=== PATIENT | female | born 1980 | race Caucasian/White ===

== ENCOUNTER 2023-04-22 18:03 | Emergency (ER) | payer MEDICAID, SELFPAY ==
[2023-04-22 18:04] VITALS: BP 139/96; PULSE 107; RESP 16; TEMP 37.2; O2SAT 99; BMI 23.7
[2023-04-22] MEDS: Morphine 4 MG/ML Syringe IV (20:01)
[2023-04-22] MEDS: Ondansetron 4 MG/2 ML Vial IV (20:01)
--- NOTE | 2023-04-22 20:14 | RAD_ITS ---
EXAM: XR CHEST, 2 VIEWS CLINICAL INDICATION: Pain TECHNIQUE: Frontal and lateral views of the chest. COMPARISON: No relevant prior studies available. FINDINGS: LUNGS AND PLEURAL SPACES: Unremarkable. No consolidation or edema. No pneumothorax. No effusion. HEART: Unremarkable. Cardiac silhouette not enlarged. MEDIASTINUM: Central airways and mediastinal contour are unremarkable. BONES/JOINTS: Unremarkable. SOFT TISSUES: Unremarkable. RAD/Chest PA and Lateral IMPRESSION: No radiographic evidence of acute cardiopulmonary disease. Electronically Signed: Quentin Cole MD at 20:40 EDT ,
[2023-04-22 20:24] LABS: Absolute Lymphocyte Count 0.77 X10^3/uL (0.83-4.51); Absolute Neutrophil Count 4.3 X10^3/uL (2.0-7.7); Basophil# 0.04 X10^3/uL; Basophil% 0.7 % (0-1); Eosinophil# 0.01 X10^3/uL; Eosinophils% 0.2 % (0-5); Hematocrit 41.8 % (37-47); Hemoglobin 13.6 g/dL (12.0-15.0); Lymphocyte # 0.77 X10^3/ul (0.83-4.51); Lymphocyte % 13.3 % (19-41); Mean Corp Hgb Conc 32.5 g/dL (32-36); Mean Corpuscular Volume 98.4 fL (81-99); Mean Platelet Vol. 10.5 fl (6.2-12.0); Monocyte# 0.69 X10^3/uL; Monocyte% 11.9 % (0-10); NRBC Flagged by Analyzer 0 % (0-5); Neutrophil # 4.28 X10^3/uL (2.7-7.7); Neutrophil % 73.7 % (47-70); Platelet Count 291 K/mm3 (150-450); RBC Distribution Width CV 11.5 % (11.6-14.6); RBC Distribution Width SD 41.4 fl (35.1-43.9); Red Blood Count 4.25 M/mm3 (4.2-5.4); White Blood Count 5.8 K/mm3 (4.4-11.0)
--- NOTE | 2023-04-22 20:38 | EDS_ITS ---
HPI History of Present Illness Chief Complaint: Chest Other Informant: patient Onset/Context/Timing Onset: Month(s) (2-3) Context: Gradual Onset Timing: Continuous Quality: Stabbing Location: Left breast Worsened by: Nothing Relieved by: Nothing Narrative Narrative: Patient presents with left breast pain that has been getting progressively worse over the past 2 to 3 months. Patient states it is gradually getting worse. Patient describes it as stabbing. Patient states it is over the left breast and radiates into the left axilla. Patient states nothing makes it better and nothing makes it worse. Patient denies any fevers or chills. Patient denies any shortness of breath or cough. Patient admits to some nausea but denies any vomiting. Patient states her pain does radiate into her back and into her neck. PFSH PFSH Medical History no medical history no medical history Allergy/AdvReac Type Severity Reaction Status Date / Time No Known Allergies Allergy Verified 04/22/23 18:04 Family History no significant family his Surgical History H/O foot surgery Social History household members: none number of children: 2 Smoking Status: Former smoker ROS ROS ED Constitutional Constitutional ED: Denies chills or fever(s) Eyes Eyes: Reports blurry vision; Denies diplopia ENT ENT ED: Denies rhinorrhea or sore throat Cardiovascular Cardiovascular: Reports chest pain; Denies palpitations Respiratory/Chest Respiratory/Chest: Denies cough or dyspnea Gastrointestinal Gastrointestinal: Reports nausea; Denies vomiting Genitourinary Genitourinary ED: Reports dysuria; Denies hematuria Musculoskeletal Musculoskeletal: Reports back pain and neck pain Integumentary Denies abscess or rash Neurologic Neurologic: Denies headache(s) or weakness Allergic/Immunologic Allergic/Immunologic ED: Denies mouth swelling or urticaria EXAM Physical Exam Const Vital Signs: 04/22/23 18:04 Temperature 99.0 F Temperature Source Temporal Pulse Rate 107 H Respiratory Rate 16 Blood Pressure 139/96 H Blood Pressure Mean 110 Pulse Ox 99 Oxygen Delivery Method Room Air Positive well nourished and well developed General Appearance ED: well developed and NAD HEENT Reports moist mucous membranes Neck supple and no JVD Chest Wall Chest Narrative: There is tenderness and a palpable mass over the left breast. There is some ecchymosis noted. There is a superficial ulceration over the lateral aspect of the left breast. There is no bleeding noted. There is no surrounding erythema. Resp normal respiratory effort and clear to auscultation bilaterally Cardio regular rate and regular rhythm Neuro oriented x3, CN's II-XII intact bilaterally and no sensory deficits noted Sensorium / Orientation: alert Motor Exam: strength 5/5 throughout Psych mental status grossly normal MDM MDM MDM Narrative Medical decision making narrative: Differential diagnosis includes breast cancer, infection, mastitis, and benign breast mass. CBC will be obtained to assess for leukocytosis and anemia. Basic metabolic profile will be obtained to assess for electrolyte abnormality and renal function. Chest x-ray will be obtained to assess for chest mass. Lab Data Attestation: I reviewed the patient's lab results. Lab results narrative: CBC was reviewed and was within normal limits. Basic metabolic profile was reviewed. Potassium was slightly low at 3.2. The remainder is within normal li mits. Labs: Laboratory Results - last 24 hr 04/22/23 20:05 WBC 5.8 RBC 4.25 Hgb 13.6 Hct 41.8 MCV 98.4 MCH 32.0 MCHC 32.5 RDW Std Deviation 41.4 RDW Coeff of Onel 11.5 L Plt Count 291 MPV 10.5 Immature Gran % (Auto) 0.200 Neut % (Auto) 73.7 H Lymph % (Auto) 13.3 L Warrick % (Auto) 11.9 H Eos % (Auto) 0.2 Baso % (Auto) 0.7 Absolute Neuts (auto) 4.3 Absolute Lymphs (auto) 0.77 L Nucleated RBC % 0 Radiography Chest X-Ray - ED: 2 View, Read by ED Physician, Read by Radiologist and No Acute Disease Diagnostic Testing: PA and lateral chest x-ray was obtained. There are 2 views. On my independent interpretation, lung vines are clear. There is normal cardiac silhouette. Bony thorax is normal. There is no acute process noted. Radiologist also interpreted the x-ray and agrees. Treatment and Re-Evaluation :: Patient was advised of her findings. Patient was advised that this is likely a breast mass that needs further evaluation as an outpatient. Patient was advised of the risk for malignancy. Patient was given a referral for general surgery for follow-up. Patient was instructed to follow-up in 5 to 7 days. Patient understood and was agreeable with the plan. All questions were answered. Discharge Plan Triage Chief Complaint: Chest Other ED Provider: Rachid Dominguez Dx/Rx/DC Orders Clinical Impression: Left breast mass Instructions: ED Breast Lump, Uncertain Cause Primary Care Provider: Care Physician,No Primary Referrals: Benjamín Coleman MD [Med Staff - Active Staff] - 5-7 Days Mary Kelley DO [Non-Staff] - 5-7 Days Disposition Disposition: Home, Self Care
[2023-04-22 20:40] LABS: Anion Gap 7 (5-15); BUN 11 mg/dL (7-18); BUN/Creat Ratio 13.7 RATIO (10-20); Calcium,Total 8.6 mg/dL (8.5-10.1); Chloride 106 mmol/L (98-107); EST Glomerular Filtration Rate 84 mL/min (>60); Est Glom Filt Rate - Afr Amer 101 mL/min (>60); Glucose 118 mg/dL (74-106); Potassium 3.2 mmol/L (3.5-5.1); Sodium Level 139 mmol/L (136-145)
[2023-04-22 22:31] VITALS: RESP 16
== END 2023-04-22 22:32 | disposition home or self-care (01) ==
PROVIDERS: Emergency Provider Emergency Medicine; Visit Provider Emergency Medicine
DX: N63.20 Unspecified lump in the left breast, unspecified quadrant (principal); Z87.891 Personal history of nicotine dependence
CPT/HCPCS: 71046; 80048; 85025; 96374; 96375; 99284; A4216; J2405